=== PATIENT | female | born 1980 | race Caucasian/White ===

== ENCOUNTER 2021-02-23 05:38 | Observation (INO) | payer OTHER, SELFPAY ==
--- NOTE | ~2021-02-23 | US_ITS ---
EXAMINATION: US right upper quadrant DATE: 02/23/2021 07:41 INDICATION: Right upper quadrant abdominal pain TECHNIQUE: Multiple grayscale and Doppler ultrasound images of the abdomen were obtained. COMPARISON: None FINDINGS: The pancreatic head and body are normal in appearance. The pancreatic tail is not visualized. Liver has normal echogenicity and contour, with a smooth surface. No liver lesion identified. No intrahepat ic biliary duct dilation suspected. Portal venous flow was seen in the hepatopetal, normal direction and has normal Doppler waveform. The gallbladder is normal in appearance. There is no cholelithiasis . The common bile duct measures 3-4 mm, which is normal. Sonographic Gomez sign was reported as nega tive by the baccarat manager.Visualized portion of the right kidney demonstrates normal contour and echoge nicity with mild hydronephrosis. IMPRESSION: 1. Mild right hydronephrosis. Otherwise normal right upper quadrant ultrasound. Reviewed, dictated and finalized at location A.
--- NOTE | 2021-02-23 06:00 | OBADM ---
This patient, Aaron Sanchez, admitted to the OB room OB Post 117 for observation. Patient/family oriented to hospital policies and general routines including ID bracelet, bed and alarms, visiting hours, pain management, procedures, bathroom and other care routines, personal items, smoking policy, room service/diet, and visiting hours. Patient/Family are encouraged to report perceived risks to care and to ask questions if they do not understand what they are told or what they should do.
--- NOTE | 2021-02-23 06:00 | PC.NURSE ---
Patient states she had pain across upper abdomen with indigestion last night. States pain more so in right upper quadrant. No vomiting. Had diarrhea x1.No fever. Abdomen soft. Reflexes normal. No swelling noted.
[2021-02-23 06:08] VITALS: BP 127/64; PULSE 63
[2021-02-23 06:25] VITALS: RESP 18; TEMP 36.6
[2021-02-23 06:59] VITALS: BMI 25.2
[2021-02-23] MEDS: FAMOTIDINE 20 MG TABLET PO (07:05)
[2021-02-23 07:12] LABS: Amylase 62 U/L (30-110); Lipase 35 U/L (23-300)
[2021-02-23 07:12] LABS: Alanine Aminotransferase 13 U/L (4-35); Albumin Level 3.6 g/dL (3.5-5.1); Alkaline Phosphatase 40 U/L (38-126); Anion Gap 6 mmol/L (8-16); Aspartate Amino Transferase 23 U/L (14-36); Bilirubin,Total 0.3 mg/dL (0.2-1.3); Blood Urea Nitrogen 11 mg/dL (7-17); Calcium 9.5 mg/dL (8.4-10.2); Carbon Dioxide 25 mmol/L (22-30); Chloride 104 mmol/L (98-107); Estimated CRCL calculation 101 ml/min; Estimated Glomerular Filt Rate > 60; Glucose 95 mg/dL (65-105); Potassium 4.1 mmol/L (3.4-5.0); Sodium 135 mmol/L (137-145)
[2021-02-23 07:21] LABS: Basophils Percent Auto 0.2 % (0.2-1.2); Eosinophils Percent Auto 0.2 % (0-4.4); Hematocrit 35.9 % (37.0-47.0); Immature Granulocyte Absolute 0.07 K/mm3 (0.00-0.031); Immature Granulocyte Percent A 0.6 % (0-0.5); Lymphocytes Absolute Auto 1.31 K/mm3 (0.9-3.2); Lymphocytes Percent Auto 10.9 % (18.3-44.2); Mean Corpuscular HGB Conc 33.4 g/dl (32-36); Mean Corpuscular Hemoglobin 30.9 pg (26-34); Mean Corpuscular Volume 92.5 fl (80-100); Mean Platelet Volume 11.4 fl (7.4-10.4); Monocytes Absolute Auto 0.9 K/mm3 (0.1-0.6); Neutrophils Absolute Auto 9.8 K/mm3 (1.3-6.7); Neutrophils Percent Auto 81.1 % (45.5-73.1); Platelet Count Result 165 k/mm3 (150-375); Red Blood Count 3.88 M/mm3 (4.2-5.4); Red Cell Distribution Width 12.4 % (11.5-14.5); White Blood Count 12.1 K/mm3 (4.5-10.0)
[2021-02-23] MEDS: ACETAMINOPHEN 500 MG TABLET 1000 MG PO (08:36)
[2021-02-23 08:53] LABS: Add Urine Microscopic? NO; Appearance Urine Clear (Clear); Bilirubin Urine Negative (Negative); Blood Urine Negative (Negative); Color Urine Colorless (Yellow); Glucose Urine UA Negative (Negative); Ketones Urine Negative (Negative); Leukocyte Esterase Ur Negative LEU/UL (Negative); Nitrate Urine Negative (Negative); Protein Urine Negative (Negative); Specific Grav Ur 1.005 (1.001-1.035); Urobilinogen Urine Negative mg/dL (<2.0)
--- NOTE | 2021-02-24 11:18 | P.PNOB_ITS ---
OB - Triage/Final Diagnosis Visit Information Comments/Additional reasons for admission: I have assessed the risk for this patient, Aaron Sanchez, and determined that she would benefit from observation care. Evaluation Laboratory results: Laboratory Tests 02/23/21 02/23/21 02/23/21 06:45 06:46 06:46 WBC 12.1 H RBC 3.88 L Hgb 12.0 Hct 35.9 L MCV 92.5 MCH 30.9 MCHC 33.4 RDW 12.4 Plt Count 165 MPV 11.4 H Immature Gran % (Auto) 0.6 H Neut % (Auto) 81.1 H Lymph % (Auto) 10.9 L [place] % (Auto) 7.0 Eos % (Auto) 0.2 Baso % (Auto) 0.2 Lymph # (Auto) 1.31 [place] # (Auto) 0.9 H Eos # (Auto) 0.0 Baso # (Auto) 0.0 Abs Immat Gran (auto) 0.07 H Absolute Neuts (auto) 9.8 H Absolute Nucleated RBC 0.0 Nucleated RBC % 0.0 Sodium 135 L Potassium 4.1 Chloride 104 Carbon Dioxide 25 Anion Gap 6 L BUN 11 Creatinine 0.60 L Estim Creat Clear Calc 101 Estimated GFR > 60 Glucose 95 Calcium 9.5 Total Bilirubin 0.3 AST 23 ALT 13 Alkaline Phosphatase 40 Total Protein 7.0 Albumin 3.6 Amylase 62 Lipase 35 Urine Color Urine Appearance Urine pH Ur Specific [place] Urine Protein Urine Glucose (UA) Urine Ketones Ur Blood (Man) Urine Nitrate Urine Bilirubin Urine Urobilinogen Leukocyte Esterase Rfl 02/23/21 08:28 WBC RBC Hgb Hct MCV MCH MCHC RDW Plt Count MPV Immature Gran % (Auto) Neut % (Auto) Lymph % (Auto) [place] % (Auto) Eos % (Auto) Baso % (Auto) Lymph # (Auto) [place] # (Auto) Eos # (Auto) Baso # (Auto) Abs Immat Gran (auto) Absolute Neuts (auto) Absolute Nucleated RBC Nucleated RBC % Sodium Potassium Chloride Carbon Dioxide Anion Gap BUN Creatinine Estim Creat Clear Calc Estimated GFR Glucose Calcium Total Bilirubin AST ALT Alkaline Phosphatase Total Protein Albumin Amylase Lipase Urine Color Colorless Urine Appearance Clear Urine pH 6.0 Ur Specific [place] 1.005 Urine Protein Negative Urine Glucose (UA) Negative Urine Ketones Negative Ur Blood (Man) Negative Urine Nitrate Negative Urine Bilirubin Negative Urine Urobilinogen Negative Leukocyte Esterase Rfl Negative Final Diagnosis (1) Abdominal pain affecting : Code(s): O26.899 - Other specified related conditions, unspecified trimester; R10.9 - Unspecified abdominal pain Status: Acute
== END 2021-02-23 09:45 | disposition home or self-care (01) ==
PROVIDERS: Admitting Provider Obstetrics & Gynecology; Visit Provider Obstetrics & Gynecology
DX: O26.899 Other specified pregnancy related conditions, unspecified trimester (principal); R10.9 Unspecified abdominal pain; Z3A.00 Weeks of gestation of pregnancy not specified
CPT/HCPCS: 36415; 76705; 80053; 81003; 82150; 83690; 85025; A9270; G0378; G0379

== ENCOUNTER 2021-06-27 20:14 | Outpatient (RCR) | payer OTHER, SELFPAY ==
[2021-05-07 15:29] VITALS: BP 113/61; PULSE 64
[2021-05-14 15:45] VITALS: BP 108/54; PULSE 56
[2021-05-21 16:27] VITALS: BP 110/61; PULSE 59
[2021-05-28 16:14] VITALS: BP 119/72; PULSE 62
[2021-06-04 16:40] VITALS: BP 107/65; PULSE 59
[2021-06-12 16:28] VITALS: BP 119/69; PULSE 83
[2021-06-18 15:44] VITALS: BP 118/70; PULSE 74
[2021-06-25 12:26] VITALS: BP 127/77; PULSE 74
--- NOTE | ~2021-06-27 | US_ITS ---
EXAMINATION: US OB follow up DATE: 05/07/2021 15:49 INDICATION: Advanced maternal age TECHNIQUE: Real-time transabdominal obstetric ultrasound. FINDINGS: No prior studies for comparison. There is a single living fetus in vertex presentation. The placenta is posterior without placenta pr evia. cardiac activity and movement is noted with a heart rate of 155 beats per minute. T he amniotic fluid volume is normal. CLAUDIA measures 20.1 cm. The following biometric data were obtained: BPD: 86mm corresponds to gestational age 34 weeks 4 days. Head circumference: 308mm corresponds to gestational age 34 weeks 2 days. Abdominal circumference: 293mm corresponds to gestational age 33 weeks 2 days. Femur length: 64mm corresponds to gestational age 33 weeks 1 days. Estimated weight: 2203grams +/- 330grams, 51.5 %.] IMPRESSION: 1. Single living intrauterine in vertex presentation with an estimated gestational age of 33 weeks 6 days by current ultrasound. EDC is 06/19/2021. 2. Normal placenta. 3: Normal CLAUDIA measures 20.1 cm. Reviewed, dictated and finalized at location A. IMPRESSION: 1. Single living intrauterine in vertex presentation with an estimat ed gestational age of 33 weeks 6 days by current ultrasound. EDC is 06/19/2021. 2. Normal placenta. 3: Normal CLAUDIA measures 20.1 cm.
--- NOTE | ~2021-06-27 | US_ITS ---
US OB follow up DATE: 06/18/2021 16:11 INDICATION: Advanced maternal age. growth. TECHNIQUE: Real-time imaging and Doppler analysis COMPARISON: 06/04/2021 obstetrical Limited ultrasound with biophysical profile FINDINGS: Live chiang intrauterine gestation, fetus in longitudinal lie, vertex presentation with heart rate of 138 bpm. Left frontal placenta. Amniotic fluid index measures 17.9 cm, within normal range. (5th percentile CLAUDIA: 7.2 cm; 95th percent ile CLAUDIA: 22.6 cm) Biparietal diameter 9.49 cm; 38 weeks 5 days 9 head circumference 35.28 cm; 41 weeks 1 day Abdominal circumference 35.24 cm; 39 weeks 1 day Femur length 7.58 cm; 38 weeks 5 days Composite age by Hamel formula based upon the current biometrics would be 39 weeks 3 days +/- 2 we eks 5 days with XIOMY of 06/22/2021. Estimated weight is 3727 +/- 559 g. Estimated weight-GP: 72.7% Femur length/BPD 79.93, within normal range of 71.0-87.0 Head circumference/abdominal surgery was 1.00, within normal range of 0.88-1.05 Femur length/abdominal circumference 21.52, within normal range of 20.00-24.00 Femur length/head circumference 21.49, within normal range of 20.64-23.01. IMPRESSION: Normal interval growth Estimated weight is 3727 +/- 559 g Reviewed, dictated and finalized at Location A. Reviewed, dictated and finalized at location A.
--- NOTE | ~2021-06-27 | US_ITS ---
EXAMINATION: US OB limited w BPP DATE: 06/04/2021 16:38 INDICATION: Advanced maternal age, variable decelerations during third trimester TECHNIQUE: Real-time pelvic ultrasound was performed. The interpreting radiologist was not present fo r the study. COMPARISON: None. FINDINGS: There is a single living fetus in vertex presentation. The placenta is fundal. heart rate is 13 2 beats per minute (bpm). The amniotic fluid index is 18.8 cm which is normal. Biophysical profile performed by the technologist: breathing (30 sec sustained breathing in 30 minutes): 2 out of 2 movement (3 gross body movements in 30 minutes): 2 out of 2 tone (one episode of luitbzw-vlbgzdvcj-ldrbctv limb movement): 2 out of 2 Amniotic fluid pocket (2 cm): 2 out of 2 Total score: 8 out of 8 IMPRESSION: 1. Single living fetus in vertex presentation. 2. Biophysical profile 8 out of 8. 3. Normal amniotic fluid index. Reviewed, dictated and finalized at location A.
[2021-06-27 21:04] VITALS: BP 112/85; PULSE 63
== END 2021-08-05 23:59 | disposition home or self-care (01) ==
LOC: ANHOBOP 20:14
PROVIDERS: Visit Provider Obstetrics & Gynecology
DX: O09.513 Supervision of elderly primigravida, third trimester (principal); Z3A.33 33 weeks gestation of pregnancy; Z3A.34 34 weeks gestation of pregnancy; Z3A.35 35 weeks gestation of pregnancy; Z3A.36 36 weeks gestation of pregnancy; Z3A.37 37 weeks gestation of pregnancy; Z3A.38 38 weeks gestation of pregnancy; Z3A.39 39 weeks gestation of pregnancy; Z3A.40 40 weeks gestation of pregnancy
CPT/HCPCS: 59025; 76815; 76816; 76819

== ENCOUNTER 2021-06-30 16:56 | Inpatient (IN) | payer OTHER, SELFPAY ==
[2021-06-30 17:48] VITALS: BP 122/82; PULSE 68
[2021-06-30 17:54] VITALS: BMI 28.1
--- NOTE | 2021-06-30 17:55 | LDADM ---
This patient, Aaron Sanchez, was admitted to Labor/Delivery/Recovery 105 on 06/30/21 at 16:56. Plans for labor, pain management and were discussed with patient. Patient/family oriented to hospital policies and general routines including ID bracelet, bed and alarms, visiting hours, pain management, procedures, bathroom and other care routines, personal items, smoking policy, room service/diet and guest tray routines, security routines, and visiting hours. Patient/Family are encouraged to report perceived risks to care and to ask questions if they do not understand what they are told or what they should do. See OBIX for further documentation.
[2021-06-30 18:04] LABS: Basophils Percent Auto 0.5 % (0.2-1.2); Eosinophils Percent Auto 0.3 % (0-4.4); Hemoglobin 13.7 g/dL (12.0-15.0); Immature Granulocyte Absolute 0.04 K/mm3 (0.00-0.031); Immature Granulocyte Percent A 0.5 % (0-0.5); Lymphocytes Absolute Auto 1.87 K/mm3 (0.9-3.2); Lymphocytes Percent Auto 21.2 % (18.3-44.2); Mean Corpuscular HGB Conc 34.3 g/dl (32-36); Mean Corpuscular Volume 93.5 fl (80-100); Monocytes Absolute Auto 0.6 K/mm3 (0.1-0.6); Neutrophils Absolute Auto 6.2 K/mm3 (1.3-6.7); Neutrophils Percent Auto 70.5 % (45.5-73.1); Platelet Count Result 140 k/mm3 (150-375); Red Blood Count 4.28 M/mm3 (4.2-5.4); Red Cell Distribution Width 12.3 % (11.5-14.5); White Blood Count 8.8 K/mm3 (4.5-10.0)
[2021-06-30 19:15] VITALS: BP 120/72; PULSE 63; TEMP 36.6
[2021-07-01] VITALS (12 sets, daily range): BP systolic 99–141; BP diastolic 52–92; PULSE 51–77; RESP 16–18; TEMP 36.6–37.4; O2SAT 97–99
[2021-07-01] MEDS: LACTATED RINGERS 1,000 ML 125 ML IV CONT (01:05)
[2021-07-01] MEDS: OXYTOCIN 30 UNITS/NS 500 ML 30 UNITS/500 ML BAG IV CONT (01:05)
[2021-07-01 06:24] LABS: Rapid Plasma Reagin Non-Reactive (NonReactive)
[2021-07-01] MEDS: LIDOCAINE HCL 1% PF 30 ML VIAL (09:15)
--- NOTE | 2021-07-01 09:31 | WPDOBADMIT ---
Obstetrics - Admit Note Admission Note: record reviewed. No pertinent additions to the history and/or any subsequent changes in the physical findings that are not consistent with the expected course of the were found. Additions to the history and/or subsequent changes in the physical findings follow. None.
--- NOTE | 2021-07-01 09:31 | WPDHPUPDATE1 ---
History and Physical Update Update Date/Time: 07/01/21 09:31 History and Physical has been reviewed, including an updated exam of the patient. There are NO changes in the patient's condition. Risks, benefits, and alternatives have been discussed and questions answered. Patient agrees to proceed with procedure.
--- NOTE | 2021-07-01 09:31 | PM.OBPRVD ---
OB - Delivery Note Procedure Route of delivery: Episiotomy description: None Laceration Description: Perineal - 2nd Degree Delivery repair: chromic Specimen: No Quantitative Blood Loss (ml): 200 Anesthesia type: Local Disposition: floor Narrative: Patient prepped and draped in usual manner this procedure. Maternal expulsive efforts delivered vertex rest of baby delivered without difficulty. Cord was clamped and the placenta delivered without difficulty. Uterus well contracted. Cervix vagina vulva were inspected with second-degree midline laceration noted. This was approximated with 2 0 chromic running interlocking manner to approximate the vaginal tissue deep tissue and the subcuticular layer to approximate the perineal skin. At this point seizure was considered terminated uterus was well contracted there was minimal bleeding. Baby Weeks of gestation at delivery: 41 gender: Female Weight (pounds): 8 Weight (ounces): 7 score one minute: 9 score five minutes: 9
[2021-07-01] MEDS: OXYTOCIN 30 UNITS/NS 500 ML 30 UNITS/500 ML BAG 125 UNITS IV CONT (09:32)
[2021-07-01] MEDS: WITCH HAZEL 40 PADS 1 PAD TOPICAL (10:29)
[2021-07-01] MEDS: HYDROcodone/acetaminophen (*CRX) 5-325 MG TABLET 1 TAB PO ×2 (10:29→18:57)
[2021-07-01] MEDS: BENZOCAINE 20% AER SPR (*SP) 56 GM CAN 1 SPRAY TOPICAL (10:29)
--- NOTE | 2021-07-01 11:50 | PC.NURSE ---
Patient transferred to post room #277 via wheelchair. Support person present. Oriented to unit, room, information board, rooming in, admission packet and security measures. Patient verbalizes understanding.
--- NOTE | 2021-07-01 13:30 | PC.NURSE ---
FIRST CONTACT WITH PT. ON ROUNDS: Consult with pt., mother reports is eagerly feeding with without issue. This is mother?s 4th child to breastfeed. last child is 8 year old. Requested mother call out next feeding for observation per policy. Reviewed infant feeding cues, frequencies, duration of feedings, feeding elimination flow sheet, and signs of adequate intake. Demonstrated stimulation techniques to wake infant for feeding. Reviewed signs of a correct latch, effective nursing and suck swallow ratio. Nipple care reviewed of lanolin after feedings and warm compresses as needed.
[2021-07-01] MEDS: IBUPROFEN 600 MG TABLET PO ×2 (13:43→23:51)
[2021-07-01] MEDS: DOCUSATE SODIUM 100 MG CAPSULE PO (19:09)
[2021-07-02 00:43] VITALS: BP 95/56; PULSE 64; RESP 18; TEMP 36.8; O2SAT 96
[2021-07-02 04:30] VITALS: BP 99/56; PULSE 55; RESP 16; TEMP 36.8; O2SAT 98
[2021-07-02] MEDS: HYDROcodone/acetaminophen (*CRX) 5-325 MG TABLET 1 TAB PO (04:45)
[2021-07-02 05:16] LABS: Hematocrit 32.7 % (37.0-47.0)
[2021-07-02 07:30] VITALS: BP 100/60; PULSE 56; RESP 18; TEMP 36.4; O2SAT 99
--- NOTE | 2021-07-02 07:45 | PC.NURSE ---
Mother verbalizes she is able to independently latch with appropriate positioning/alignment. She denies any nipple discomfort, is feeding as required and waking to feed if needed. Infant has had at least 8 effective feedings in the past 24 hours, and is currently meeting outcomes for weight, output, jaundice and feeding frequencies. Mother states she feels confident to continue effective at home. Reviewed transition to breast milk, signs of adequate intake, and engorgement/relief. Instructed to call ICP if intake/output less than required. Reviewed regular medications mother is taking. Information provided per [place]. Reviewed community resources on the [email or web address] website and in the Mom/Baby guide. Information on outpatient services provided. Mother has no further questions at this time. Again offered assist or observation of feeding, mother declines.
[2021-07-02] MEDS: IBUPROFEN 600 MG TABLET PO (08:02)
[2021-07-02] MEDS: MULTIVIT/MIN/PREN/FOL AC/IRON TABLET 1 TAB PO (08:02)
[2021-07-02] MEDS: TETANUS,DIPHTHERIA,AC PERTUSSIS ADULT (0.5 ML) BOOSTRIX IM (08:02)
--- NOTE | 2021-07-02 11:05 | PM.OBDSVD ---
DS: Admitting Diagnosis Discharge Date 07/02/2021 Admitting Diagnosis DS: Discharge Diagnosis Discharge Diagnosis (1) Abdominal pain affecting : Code(s): O26.899 - Other specified related conditions, unspecified trimester; R10.9 - Unspecified abdominal pain Status: Acute OB - DS: Summary OB Procedures : None OB Procedures Intrapartum: Spontaneous Vag Delivery OB Procedures: : None Time Spent with Patient Time attestation: Total time spent providing and/or coordinating discharge services: DS: Data Data Completed and Pending Labs on day of discharge: Labs from last 24 hours 07/02/21 04:35 Hgb 11.0 L Hct 32.7 L Discharge Plan Discharge Discharging Clinician: Kody Horowitz Anticipated Discharge Date/Time: 07/02/21 11:05 Patient Disposition: Home, Self-Care Activity: as tolerated Diet: as tolerated Patient Instructions: Antibiotic Form Stand Alone Forms: General Discharge Information Follow-up/Referrals: Kody Horowitz MD [Physician] - 3 Weeks Discharge Medications: New hydrocodone-acetaminophen 5-325 mg Tablet 1 tablet PO Q4H Qty: 20 RF: 0 ibuprofen 600 mg Tablet 600 mg PO Q6H PRN (Reason: Cramping) Qty: 30 RF: 0 Continued Classic 28 mg iron- 800 mcg Tablet 1 tablet PO DAILY RF: 0 Discontinued aspirin 81 mg Tablet,Chewable 81 mg PO DAILY RF: 0 Date of admission: 06/30/21 16:56 Primary Care Provider: PHYSICIAN,FOREIGN SERVICE TEACHER Admitting Provider: Kody Horowitz Attending physician on admission: Kody Horowitz Condition: Stable
--- NOTE | 2021-07-02 11:31 | PC.NURSE ---
Patient viewed the discharge video Mother & Baby Care, The First Two Weeks . Patient was given the opportunity and encouraged to ask questions. Patient verbalized understanding of information shared and has been given the mother/baby guide for home reference.
[2021-07-03 07:52] VITALS: BP 114/70; PULSE 97; RESP 16; TEMP 36.4; O2SAT 97
== END 2021-07-02 12:17 | disposition home or self-care (01) | DRG 807 ==
LOC: ANHLDR 16:58 → ANHOB2 07-01 12:00
PROVIDERS: Admitting Provider Obstetrics & Gynecology; Visit Provider Obstetrics & Gynecology
DX: O70.1 Second degree perineal laceration during delivery (principal); Z37.0 Single live birth; Z3A.41 41 weeks gestation of pregnancy
CPT/HCPCS: 36415; 59025; 85014; 85018; 85025; 86592; 86850; 86900; 86901; 90715; A9270; J2590; J7120

== ENCOUNTER 2024-05-08 11:24 | Outpatient (CLI) | payer OTHER, SELFPAY ==
--- NOTE | ~2024-05-08 | MMUS_ITS ---
EXAMINATION: US breast BI complete, MM diag victoria implant BI w jesse HISTORY: Palpable right breast lump TECHNIQUE: Additional 3-D tomosynthesis images of the breasts were performed and synthetic 2-D images were generated. CAD analysis was submitted and interpreted. High resolution complete bilateral breas t ultrasound was performed. COMPARISON: None BREAST PARENCHYMAL COMPOSITION: Dense: The breasts are extremely dense, which lowers the sensitivity of mammography. FINDINGS: MAMMOGRAPHIC FINDINGS: There is focal asymmetry laterally in the right breast on CC implant displaced view, posterior third. No mammographic evidence for malignancy in the left breast. ULTRASOUND: Complete US of all 4 quadrants of the breast/s and retroareolar region was reviewed. Right breast: Mildly prominent ducts. At 9:00, 6 cm from the nipple there is an irregular shaped hypo echoic mass with heterogeneous internal echotexture measuring 1.3 x 1.2 x 1 cm. There is internal vas cularity. Left breast: Normal heterogeneous echotexture without focal solid or cystic mass. IMPRESSION: 1. Irregular shaped 1.3 cm right breast mass at 9:00, 6 cm from the nipple. 2. Ultrasound-guided biopsy recommended. BI-RADS category 4, suspicious findings. Reviewed, dictated and finalized at location B. IMPRESSION: 1. Irregular shaped 1.3 cm right breast mass at 9:00, 6 cm from the nipple. 2. Ultrasound-guided biopsy recommended. BI-RADS category 4, suspicious findings.
== END 2024-05-08 11:25 | disposition home or self-care (01) ==
PROVIDERS: Visit Provider Surgery
DX: N63.15 Unspecified lump in the right breast, overlapping quadrants (principal)
CPT/HCPCS: 76641; 77062; 77066; G0279

== ENCOUNTER 2024-06-08 10:39 | Outpatient (CLI) | payer OTHER, SELFPAY ==
--- NOTE | ~2024-06-08 | MR_ITS ---
MR breast BI wo/w con 06/08/2024 12:41 CDT INDICATION: Prior diagnostic mammogram and ultrasound demonstrated a right breast mass at 9:00 measur ing 1.3 cm, suspicious for malignancy. Biopsy requested. TECHNIQUE: MRI of the breasts perform using standard protocol pre-and post IV contrast with the follo wing sequences: Axial T2 STIR, axial T1, axial vibrant T1 with fat suppression precontrast and multip hasic postcontrast. COMPARISON: FINDINGS: Precontrast sequences demonstrate an irregular shaped T2 hypointense mass laterally in the right breast which is relatively isointense on T1 precontrast. There is marked background parenchymal enhancement. Due to the extensive background enhancement there is limited evaluation for other abnor mal enhancing masses. There are bilateral breast implants. No evidence for implant rupture. No lympha denopathy. LEFT BREAST: No signal abnormalities on precontrast sequences. There is marked background parenchyma l enhancement. No enhancing lesions following contrast administration. No areas of enhancement ino ting threshold criteria on CAD analysis. No evidence of signal abnormalities in the axillary or int ernal mammary node distributions. Evaluation for subtle masses limited due to extensive background en hancement. Postcontrast sequences demonstrate a mass in the lower outer quadrant of the right breast at approximately 8:00, 6 cm from the nipple measuring 1.5 x 1.1 x 1 cm. This corresponds to the mass seen on prior examination. There is rapid washout enhancement. IMPRESSION: 1: Right breast: Abnormal 1.5 cm mass of the right breast with rapid washout enhancement measuring 1 .5 cm located at 8:00, 6 cm from the nipple. This corresponds to the area of mass identified on prior study. Recommend ultrasound-guided right breast biopsy. BI-RADS Category 4. 2: Left breast: Negative. No evidence of malignancy. Evaluation limited due to background enhanceme nt. BI-RADS category 1. Recommend annual mammography follow-up. Reviewed, dictated and finalized at location B. IMPRESSION: 1: Right breast: Abnormal 1.5 cm mass of the right breast with rapid washout e nhancement measuring 1.5 cm located at 8:00, 6 cm from the nipple. This corresp onds to the area of mass identified on prior study. Recommend ultrasound-guided right breast biopsy. BI-RADS Category 4. 2: Left breast: Negative. No evidence of malignancy. Evaluation limited due t o background enhancement. BI-RADS category 1. Recommend annual mammography fol low-up.
== END 2024-06-08 10:40 | disposition home or self-care (01) ==
LOC: ANHIMG 10:40
PROVIDERS: Visit Provider Surgery
DX: N63.13 Unspecified lump in the right breast, lower outer quadrant (principal); R92.343 Mammographic extreme density, bilateral breasts; Z98.890 Other specified postprocedural states
CPT/HCPCS: 77049; A9577; C8908

== ENCOUNTER 2024-06-08 13:30 | Outpatient (RCR) | payer OTHER, SELFPAY ==
--- NOTE | 2024-05-28 11:06 | OTOPEVAL1 ---
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 She reports her left thumb is worse than the right. On a regular basis with ADLs her left thumb is 3-4/10 and right is 2/ 10. Neither thumb gets down to 0/10. She reports her pain is the worst at the night. She reports aggravating activities include opening jars and gripping activities. 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 Assessment OT Clinical Summary Patient referred to OT with dx of bilateral 1st CMC OA. Functionally she is having difficulties with daily tasks due to constant bilateral thumb pain. She presents with intact ROM of bilateral thumbs, but reports of pain with composite thumb flexion. A custom hand based thumb spica orthosis was fabricated today for the patient to wear during ADLs to help support the left thumb CMC joint and reduce pain. Issued active ROM HEP also. Continued follow up indicated for use of modalities, manual therapy, orthotic fabrication, education on joint protection techniques, adaptive equipment, and HEP instruction/progression to facilitate reduced pain and improved functional use of bilateral hands. Plan of Care Interventions Therapeutic Exercise,Manual Therapy,Therapeutic Activities,Hot Pack/Cold Pack,Check Out for Orthotic/Pr,Ultrasound,Paraffin OT Services Indicated Yes Treatment Frequency and 1x/week for 5 visits Duration These treatments will address the objective and functional deficits as defined above. The patient will be advanced safely and appropriately in order for the patient to progress towards his/her prior level of function. Additional exercises will be introduced and as well as a comprehensive home exercise program upon discharge, if needed, ?to ensure carryover of functional gains achieved in the clinic. This treatment plan has been reviewed and agreement upon by the patient.
--- NOTE | 2024-05-28 11:07 | OPREHPOC ---
Outpatient Therapy Plan of Care This is a Multidisciplinary Plan of Care that may contain components documented by all disciplines (PT, OT, and ST.) OT Problem 1 OT Problem #1 Knowledge Deficit OT Goal 1 Goal / Goal Update 1. Patient to be independent with instructed materials. Target Visit 5 OT Problem 2 OT Problem #2 Pain OT Goal 1 Goal / Goal Update 1. Patient to report reduced bilateral thumb pain to 0/10 at rest. 2. Patient to report reduced bilateral thumb pain to 2/10 at worst . Target Visit 5 OT Problem 3 OT Problem #3 Impaired Strength OT Goal 1 Goal / Goal Update 1. Patient to be able to progress to bilateral wrist strengthening with 2 lb. dumbbell x20 reps without pain. 2. Patient to be able to progress to bilateral care transition coordinator/pinch strengthening with yellow putty without pain. Target Visit 5
--- NOTE | 2024-06-28 13:42 | PCOTNOTE ---
LATE NOTE: patient called and cancelled visits on 06/14 and 06/21.
--- NOTE | 2024-06-28 13:43 | PCOTNOTE ---
Patient did not show up for scheduled appointment this date. Attempted to call patient's phone number listed in the chart, however it did not ring.
--- NOTE | 2024-07-03 09:02 | OTOPDC ---
Assessment and note entered by Ge Webb, OTR/L, CHT OT D/C Notification 07/03/24 OT Clinical Summary Patient referred to OT with dx of bilateral 1st CMC OA. A hand based thumb spica was fabricated for the left thumb at the initial evaluation. She unfortunately only attended 1 follow up appointment after that and has missed the last 3 scheduled appointments. We are discharging her per our attendance policy.
== END 2024-07-03 10:57 | disposition home or self-care (01) ==
LOC: ANHOT 13:30
PROVIDERS: Visit Provider Physician Assistant Surgical
DX: M18.0 Bilateral primary osteoarthritis of first carpometacarpal joints (principal)
CPT/HCPCS: 97018; 97110; 97140; 97165; L3913

== ENCOUNTER 2024-07-16 07:50 | Outpatient (CLI) | payer OTHER, SELFPAY ==
--- NOTE | ~2024-07-16 | MMUS_ITS ---
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 Ultrasound-guided core biopsy is requested to evaluate for malignancy. BREAST PARENCHYMAL COMPOSITION: Dense: The breasts are extremely dense, which lowers the sensitivity of mammography. TECHNIQUE AND FINDINGS: The risks and potential benefits of the procedure were discussed with the patient, and written inform ed consent was obtained. After sterile preparation of the right breast, 1% lidocaine was utilized fo r local anesthesia. 1% lidocaine with epinephrine was used for deep anesthesia. A 10G vacuum-assisted biopsy gun needle was advanced through to the outer edge of the region of inter est from a lateral approach utilizing sonographic guidance. A total of three tissue core samples wer e obtained through the lesion. An Inrad tissue marker clip was then placed at the biopsy site. Hemos tasis was achieved. The patient tolerated procedure well and there was no evidence of immediate complication. The patien t was given verbal instructions partly is from the department. Right breast mammograms to document t issue marker clip placement. The tissue samples were submitted to surgical pathology for histologic a nalysis. IMPRESSION: 1. Successful ultrasound-guided vacuum-assisted biopsy of right breast mass with post procedure mamm ogram for marker placement. Please refer to pathology report for histologic analysis. Reviewed, dictated and finalized at location B. MIXER OPERATOR IMPRESSION: 1. Successful ultrasound-guided vacuum-assisted biopsy of right breast mass wi th post procedure mammogram for marker placement. Please refer to pathology rep ort for histologic analysis.
== END 2024-07-16 07:51 | disposition home or self-care (01) ==
PROVIDERS: Visit Provider Surgery
DX: R92.8 Other abnormal and inconclusive findings on diagnostic imaging of breast (principal); N62 Hypertrophy of breast; N60.11 Diffuse cystic mastopathy of right breast; N63.15 Unspecified lump in the right breast, overlapping quadrants; R92.343 Mammographic extreme density, bilateral breasts; Z98.890 Other specified postprocedural states
CPT/HCPCS: 19083; 77065; 88305; A4648